=== PATIENT | female | born 1955 | race Two or more races ===

== ENCOUNTER 2025-03-03 12:48 | Emergency (ER) | payer OTHER ==
[2025-03-03 14:16] LABS: Absolute Lymphocytes (CBC) 1.5 K/uL (0.7-4.9); Hematocrit 36.0 % (36.0-45.0); Hemoglobin 11.7 g/dL (12.0-15.0); MCH 26.8 pg (27.0-35.0); MCHC 32.6 g/dL (32.0-36.0); MCV 82.4 fL (80-100); MPV 6.8 fL (7.6-11.3); Nucleated RBC Absolute Count 0.0 (0-0); Nucleated Red Blood Cells % 0.1 % (0-0); RBC Red Blood Cell Count 4.37 M/uL (3.86-4.86); White Blood Count 5.60 thou/uL (4.3-10.9)
[2025-03-03 14:20] LABS: Sqamous Epithelial None Seen /HPF (None Seen); Urine Crystals Unidentified Few /HPF (None Seen); Urine Culture Reflex Order REFLEXED; Urine Microscopic Reflex YN ORDER UMIC
[2025-03-03 14:37] LABS: ALT/SGPT 31.0 U/L (13-56); AST/SGOT 23.0 U/L (15-37); Albumin 3.9 g/dL (3.4-5.0); Albumin/Globulin Ratio 0.8 (1.1-1.8); Alkaline Phosphatase 49.0 U/L (45-117); Anion Gap 12.0 mEq/L (5.0-15.0); BUN Blood Urea Nitrogen 16.0 mg/dL (7-18); Globulin 4.8 g/dL (2.3-3.5); Glucose Level 155.0 mg/dL (74-106); Lipase 48.0 U/L (13-75); Potassium 4.0 mEq/L (3.5-5.1)
--- NOTE | 2025-03-03 15:24 | RAD REPORT ---
EXAMINATION: CT ABDOMEN AND PELVIS WITH CONTRAST CLINICAL INDICATION: Abd pain;Hematuria TECHNIQUE: CT abdomen and pelvis was performed, after the administration of IV contrast, as per [facility] protocol. Axial, sagittal and coronal reconstructions were obtained. One or more of the following dose reduction techniques were used: Automated exposure control, adjustment of the mA and k V according to patient size, and iterative reconstruction. Unless otherwise specified, incidental findings do not require dedicated imaging follow-up. COMPARISON: No prior exam. FINDINGS: LOWER CHEST: The visualized lung bases are clear. LIVER: Normal in size and contour. No focal lesion. Grossly unremarkable gallbladder. SPLEEN: Normal size. No focal lesion. PANCREAS: No mass, ductal dilation, or maxwell-pancreatic fluid. ADRENALS: Normal; no mass. KIDNEYS: Normal size and contour. No hydronephrosis. GASTROINTESTINAL TRACT: No evidence of free air, significant intra-abdominal free fluid, bowel obstru ction or abscess. Sigmoid diverticulosis coli without diverticulitis. APPENDIX: Appendix not visualized, but no inflammatory changes in region of appendix. LYMPH NODES: Previously described prominent upper abdominal lymph nodes have diminished in size. MUSCULOSKELETAL: Mild multilevel spinal degenerative changes. ADDITIONAL FINDINGS: Thickening and slight enhancement in the urinary bladder mucosa. IMPRESSION: Thickening and enhancement of the urinary bladder mucosa is seen suggesting cystitis.
[2025-03-03] MEDS ORDERED: NA CHLORIDE 0.9% 1,000 ML ONE (15:34)
[2025-03-03] MEDS ORDERED: AMOX/K CLAV 875 MG TAB ONE (15:53)
--- NOTE | 2025-03-03 16:22 | EDPHYS ---
Physician Documentation [facility] Name: Dickson Rosales Age: 69 yrs Sex: Female : 1955 Arrival Date: 03/03/2025 Time: 12:48 Bed 24 Private MD: ED Physician Prashanth Zaragoza HPI: 03/03 15:44 This 69 yrs old [place] Female presents to ER via Ambulatory with complaints of kb Urinary Problem. 15:44 Patient is a 69-year-old female who presents for dysuria and hematuria that started 2 kb weeks ago. States she went to her PCP and they told her to come to the ER for evaluation.. Historical: - Allergies: 13:08 No Known Allergies; me1 - PMHx: 13:08 cervical cancer; diabetes mellitus; Hypertensive disorder; me1 - PSHx: 13:08 Total abdominal hysterectomy; me1 - Immunization history:: Adult Immunizations up to date. - Infectious Disease History:: Denies. - Social history:: Smoking status: Patient denies any tobacco usage or history of. ROS: 15:44 Constitutional: As per HPI kb Exam: 15:44 Constitutional: This is a well developed, well nourished patient who is awake, alert, kb and in no acute distress. Head/Face: Normocephalic, atraumatic. ENT: Moist Mucous membranes Cardiovascular: Regular rate Respiratory: Respirations even and unlabored. No increased work of breathing. Talking in full sentences Skin: Warm, dry with normal turgor. Normal color. MS/ Extremity: Pulses equal, no cyanosis. Neurovascular intact. Full, normal range of motion. Neuro: Awake and alert, GCS 15, oriented to person, place, time, and situation. 15:44 Abdomen/GI: Inspection: abdomen appears normal, Bowel sounds: normal, Palpation: soft, in all quadrants, mild abdominal tenderness, in the suprapubic area and right lower quadrant, Vital Signs: 13:06 BP 157 / 78; Pulse 92; Resp 16; Temp 98.2; Pulse Ox 100% ; Weight 54.43 kg; Height 5 me1 ft. 0 in. ; Pain 2/10; 15:29 BP 172 / 79; Pulse 87; Resp 16; Pulse Ox 100% on R/A; Pain 6/10; jb4 16:51 BP 151 / 66; Pulse 77; Resp 16; Pulse Ox 100% on R/A; jb4 13:06 Body Mass Index 23.44 (54.43 kg, 152.4 cm) me1 13:06 Pain Scale: Adult me1 15:29 Pain Scale: Adult jb4 MDM: 13:14 Medical Screening Exam initiated kb 15:45 Differential diagnosis: UTI, Kidney stone, pyelonephritis. Data reviewed: vital signs, kb nurses notes. Historians other than the Patient: Family Member: family. Counseling: I had a detailed discussion with the patient and/or guardian regarding the historical points, exam findings, and any diagnostic results supporting the discharge/admit diagnosis, lab results, radiology results, the need for outpatient follow up, a family practitioner, to return to the emergency department if symptoms worsen or persist or if there are any questions or concerns that arise at home. 03/03 13:14 Order name: CBC with Diff; Complete Time: 14:20 kb 03/03 13:14 Order name: CMP; Complete Time: 14:40 kb 03/03 13:14 Order name: Lipase; Complete Time: 14:40 kb 03/03 13:14 Order name: UA Rfx Joseph Cult if indicated; Complete Time: 14:28 kb 03/03 14:28 Order name: Urine Culture; Complete Time: 08:20 EDMS 03/03 13:57 Order name: CT Abd/Pelvis - IV Contrast Only; Complete Time: 15:25 kb 03/03 13:14 Order name: IV Saline Lock; Complete Time: 14:10 kb 03/03 13:14 Order name: Labs collected and sent; Complete Time: 14:10 kb Administered Medications: 15:45 Drug: NS 0.9% IV 1000 ml IV at 1000 ml once; to be given as a bolus over 60 minutes jb4 Route: IV; Rate: 1000 ml; Site: left antecubital; 17:02 Follow up: Response: No adverse reaction; IV Status: Completed infusion; IV Intake: jb4 1000ml 15:57 Drug: Amoxicillin-Clavulanate PO 875 mg PO once Route: PO; jb4 17:02 Follow up: Response: No adverse reaction jb4 Disposition: 17:52 Co-signature as Attending Physician, Prashanth Zaragoza MD I reviewed the patient's care rn provided by the Advanced Practice Provider and agree with the diagnosis and treatment plan. Disposition Summary: 03/03/25 16:22 Discharge Ordered Notes: Location: Home kb Condition: Stable kb Diagnosis - Acute cystitis with hematuria kb Followup: kb - With: Emergency Department - When: As needed - Reason: Worsening of condition Followup: kb - With: Private Physician - When: 2 - 3 days - Reason: Recheck today's complaints, Continuance of care, Re-evaluation by your physician Discharge Instructions: - Discharge Summary Sheet kb - Urinary Tract Infection, Adult, [id number] kb Forms: - Medication Reconciliation Form kb - Antibiotic Education kb - Prescription Opioid Use kb - Patient Portal Instructions kb - Leadership Thank You Letter kb Prescriptions: - Augmentin 875-125 mg Oral Tablet - take 1 tablet ORAL route every 12 hours for 10 days; 20 tablet; Refills: 0, kb Product Selection Permitted - Macrobid 100 mg Oral Capsule - take 1 capsule ORAL route every 12 hours for 7 days; 14 capsule; Refills: 0, dr5 Product Selection Permitted Signatures: Dispatcher [employer] EDMS Iqra Lynn, DAIRY HUSBANDRY WORKER-C DAIRY HUSBANDRY WORKER-Ckb Prashanth Zaragoza MD MD rn Bryson, James, RN RN jb4 Daniela Lainez, RN RN me1 Rik Sandoval, DAIRY HUSBANDRY WORKER-C DAIRY HUSBANDRY WORKER-Cdr5 Corrections: (The following items were deleted from the chart) 13:14 13:14 CBC+H.LAB.BRZ ordered. EDMS EDMS 13:14 13:14 COMPREHENSIVE METABOLIC PANEL+C.LAB.BRZ ordered. EDMS EDMS 13:14 13:14 LIPASE+C.LAB.BRZ ordered. EDMS EDMS 13:14 13:14 UA Rfx Joseph Cult if indicated+U.LAB.BRZ ordered. EDMS EDMS 13:58 13:58 Abdomen Pelvis W Con+CT.RAD.BRZ ordered. EDMS EDMS
--- NOTE | 2025-03-03 16:22 | ER ---
Nurse's Notes [facility] Name: Dickson Rosales Age: 69 yrs Sex: Female : 1955 Arrival Date: 03/03/2025 Time: 12:48 Bed 24 Private MD: Diagnosis: Acute cystitis with hematuria Presentation: 03/03 13:06 Chief complaint: Patient states: blood in urine, fever, RLQ pain for 3 weeks. Also me1 reports dizziness this morning. Coronavirus screen: Vaccine status: Patient reports receiving the 2nd dose of the covid vaccine. Ebola Screen: No symptoms or risks identified at this time. Initial Sepsis Screen: Does the patient meet any 2 criteria? HR > 90 bpm. Does the patient have a suspected source of infection? No. Patient's initial sepsis screen is negative. Risk Assessment: Do you want to hurt yourself or someone else? Patient reports no desire to harm self or others. Onset of symptoms is unknown. 13:06 Method Of Arrival[place] [facility] [place] Acuity: DEONNA 3 me1 Historical: - Allergies: 13:08 No Known Allergies; me1 - PMHx: 13:08 cervical cancer; diabetes mellitus; Hypertensive disorder; me1 - PSHx: 13:08 Total abdominal hysterectomy; me1 - Immunization history:: Adult Immunizations up to date. - Infectious Disease History:: Denies. - Social history:: Smoking status: Patient denies any tobacco usage or history of. Screenin:25 [facility] ED Fall Risk Assessment (Adult) History of falling in the last 3 months, jb4 including since admission No falls in past 3 months (0 pts) Confusion or Disorientation No (0 pts) Intoxicated or Sedated No (0 pts) Impaired Gait No (0 pts) Mobility Assist Device Used No (0 pt) Altered Elimination No (0 pt) Score/Fall Risk Level 0 - 2 = Low Risk Oriented to surroundings, Maintained a safe environment. Abuse screen: Denies threats or abuse. Nutritional screening: No deficits noted. Tuberculosis screening: No symptoms or risk factors identified. Assessment: 15:25 General: Appears in no apparent distress. uncomfortable, Behavior is calm, cooperative, jb4 appropriate for age. Pain: Complains of pain in right femoral area Pain does not radiate. Pain currently is 6 out of 10 on a pain scale. Alleviated by rest, Aggravated by increased activity. Neuro: Level of Consciousness is awake, alert, obeys commands, Oriented to person, place, time, situation. Cardiovascular: Patient's skin is warm and dry. Respiratory: Airway is patent Respiratory effort is even, unlabored, Respiratory pattern is regular, symmetrical. : Reports pain right groin Denies burning with urination, discharge, inability to void, incontinence, urinary frequency, urgency. Derm: Skin is intact, Skin is pink, warm \T\ dry. Musculoskeletal: Circulation, motion, and sensation intact. Range of motion: intact in all extremities. 16:29 Reassessment: Patient appears in no apparent distress at this time. Patient and/or jb4 family updated on plan of care and expected duration. Pain level reassessed. Patient is alert, oriented x 3, equal unlabored respirations, skin warm/dry/pink. d/c pending completion of iv fluids. 16:51 Reassessment: Patient appears in no apparent distress at this time. Patient and/or jb4 family updated on plan of care and expected duration. Pain level reassessed. Patient is alert, oriented x 3, equal unlabored respirations, skin warm/dry/pink. Vital Signs: 13:06 BP 157 / 78; Pulse 92; Resp 16; Temp 98.2; Pulse Ox 100% ; Weight 54.43 kg; Height 5 me1 ft. 0 in. ; Pain 2/10; 15:29 BP 172 / 79; Pulse 87; Resp 16; Pulse Ox 100% on R/A; Pain 6/10; jb4 16:51 BP 151 / 66; Pulse 77; Resp 16; Pulse Ox 100% on R/A; jb4 13:06 Body Mass Index 23.44 (54.43 kg, 152.4 cm) me1 13:06 Pain Scale: Adult me1 15:29 Pain Scale: Adult jb4 ED Course: 12:51 Patient arrived in ED. im 13:08 Triage completed. me1 13:08 Arm band placed on Patient placed in waiting room. me1 13:13 Iqra Lynn FNP-C [facility] kb 13:14 Prashanth Zaragoza MD is Attending Physician. kb 14:10 Initial lab(s) drawn, by me, sent to lab. Inserted saline lock: 22 gauge in left iw antecubital area, using aseptic technique. Blood collected. Flushed with 10 mL NS. 14:52 CT Abd/Pelvis - IV Contrast Only In Process Unspecified. EDMS 15:16 Derrick Gould, RN is Primary Nurse. jb4 15:25 Patient has correct armband on for positive identification. Bed in low position. Call jb4 light in reach. Side rails up X 1. Provided Education on: plan of care. 15:25 No provider procedures requiring assistance completed. jb4 17:02 IV discontinued, intact, bleeding controlled, No redness/swelling at site. Pressure jb4 dressing applied. Administered Medications: 15:45 Drug: NS 0.9% IV 1000 ml IV at 1000 ml once; to be given as a bolus over 60 minutes jb4 Route: IV; Rate: 1000 ml; Site: left antecubital; 17:02 Follow up: Response: No adverse reaction; IV Status: Completed infusion; IV Intake: jb4 1000ml 15:57 Drug: Amoxicillin-Clavulanate PO 875 mg PO once Route: PO; jb4 17:02 Follow up: Response: No adverse reaction jb4 Medication: 15:25 VIS not applicable for this client. jb4 Intake: 17:02 IV: 1000ml; Total: 1000ml. jb4 Outcome: 16:22 Discharge ordered by . jeb 16:51 Discharged to home ambulatory, jb4 16:51 Condition: stable 16:51 Discharge instructions given to patient, Instructed on discharge instructions, follow up and referral plans. medication usage, Demonstrated understanding of instructions, follow-up care, medications, Prescriptions given X 1, 17:02 Patient left the ED. jb4 Addendum: 03/07/2025 09:30 Addendum: Culture Results: Positive urine culture. Bacteria is resistant to, has a a5 intermediate sensitivity, or is not tested against prescribed antibiotics. Report given to VIJAY for further evaluation and then to shoe associate for follow up with patient. Phone call Attempt #1 left voicemail at [phone]. Pt called back at [phone] and stated she will come pick and shovel man physical RX, new RX is Macrobid 100 mg PO BID x 7 days ago. Signatures: Dispatcher [employer] EDMS Iqra Lynn, BLANK-C CREDIT INTERVIEWER-Maria C Zavala RN RN iw Calderon, Audri RN RN aa5 Derrick Gould, RN RN jb4 Shanda Machuca Michelle, RN RN me1
[2025-03-03 22:11] VITALS: O2SAT 100
[2025-03-03 22:24] VITALS: BP 110/75; TEMP 99
== END 2025-03-03 17:02 | disposition home or self-care (01) ==
LOC: ER 12:48
DX: N30.01 Acute cystitis with hematuria (principal); I10 Essential (primary) hypertension; E11.9 Type 2 diabetes mellitus without complications; Z85.41 Personal history of malignant neoplasm of cervix uteri
CPT/HCPCS: 87088; 85025; 81001; 87086; 36415; 87077; 87186; 83690; 80053; 74177; 96360; 99284; Q9967; J7030